=== PATIENT | female | born 1960 | race Caucasian/White ===

== ENCOUNTER → 2016-03-27 | Outpatient (CLI) | payer OTHER ==
--- NOTE | 2016-03-27 13:13 | MA ---
Screening Digital Mammogram with iCAD Clinical Indications: Routine screening. Technique: Standard cephalocaudal and mediolateral oblique projections were obtained. This examinat ion was processed by the iCAD computer aided detection system. Comparison: 2015, 2013, 2012, 2011 Breast density: 2; 25 to 50% Findings: CAD was reviewed. No suspicious findings are identified. No interval development of new suspicious calcification, mass, or architectural distortion. Impression: Benign. BI-RADS 2. Recommendation: Routine screening is recommended in one year. [facility] will send a result letter to the patient. Negative mammography should not preclude additional workup of a clinically suspicious finding. The patient's information is entered into a reminder system with a target due date for her next mammo gram.
--- NOTE | 2016-03-28 11:17 | DX ---
DEXA Bone Densitometry Technique: DEXA scan was performed on [employer] Discovery W Bone Densitometer Indication: Screening examination Comparator Study: None Results: Lumbar Spine BMD: 0.827 T-score: -2.0 Total Hip (Right) BMD: 0.781 T-score: -1.3 Femoral Neck (Right) BMD: 0.630 T-score: -2.0 Total Hip (Left) BMD: 0.780 T-score: -1.3 Femoral Neck (Left) BMD: 0.638 T-score: -1.9 CONCLUSION: Osteopenia ADDITIONAL COMMENTS: By FRAX calculation, the estimated 10 year probability of any major osteoporotic fracture is 14%. The estimated 10 year probability of hip fracture 0.9%. Consider repeating the study in 2 years NOTE: The risk of osteoporotic fractures increases approximately twofold for each 1.0 SD decrease in T-score. The T-score represents the standard deviations from a young normal, same sex, reference po pulation. Low bone density is not the only risk factor for fracture. Clinical factors to consider include fall risk, previous osteoporotic fractures, family history of fractures, smoking, and low body weight. Patients who have an unexpectedly low BMD may need to be evaluated for secondary causes of low bone m ineral density. In comparing the present study to a prior study, lack of a significant increase or decrease in BMD ma y signify efficacy of the patient's present treatment. Bone mineral density measurements performed with densitometers produced by different manufacturers ar e not comparable. For the most reproducible BMD measurement, subsequent exams should be performed on the same densitometer.
== END ==
LOC: BMCIMAGING 10:07
DX: Z12.31 Encounter for screening mammogram for malignant neoplasm of breast (principal); Z13.820 Encounter for screening for osteoporosis; M85.80 Other specified disorders of bone density and structure, unspecified site
CPT/HCPCS: G0202

== ENCOUNTER → 2017-04-02 | Outpatient (CLI) | payer OTHER | LOC: FIMAGING 12:53 | PROVIDERS: ATTEND Internal Medicine Hematology & Oncology | DX: Z12.31 Encounter for screening mammogram for malignant neoplasm of breast (principal); Z85.3 Personal history of malignant neoplasm of breast; Z80.3 Family history of malignant neoplasm of breast ==

== ENCOUNTER → 2018-04-18 | Outpatient (CLI) | payer OTHER | LOC: FIMAGING 08:59 | PROVIDERS: ATTEND Internal Medicine Hematology & Oncology | DX: Z12.31 Encounter for screening mammogram for malignant neoplasm of breast (principal) ==